=== PATIENT | female | born 1955 | race Caucasian/White ===

== ENCOUNTER 2016-10-20 21:13 | Emergency (ER) | payer OTHER ==
[~2016-10-20 21:13] MED LIST: DOXY100T PO; KLON2TAB PO; LYRI50CA2 PO; MAXA10TA2 PO; PERC10TA27 PO; SERT100 PO; TRAZ100 PO
[2016-10-20 21:16] VITALS: BP 102/64; PULSE 63; RESP 16; TEMP 97.8; O2SAT 96
[2016-10-20 23:32] LABS: AUTOMATED NEUTROPHIL # 3.7 TH/MM3 (1.8-7.7); BASOPHIL # 0.1 TH/MM3 (0-0.2); BASOPHIL % 0.8 % (0.0-2.0); EOSINOPHIL # 0.1 TH/MM3 (0-0.4); EOSINOPHIL % 1.7 % (0.0-4.0); HEMATOCRIT 40.4 % (35.0-46.0); HEMO FLAGS DIFF FINAL; LYMPH % 34.7 % (9.0-44.0); LYMPHOCYTE # 2.3 TH/MM3 (1.0-4.8); MEAN CELL VOLUME 82.2 FL (80.0-100.0); MEAN CORPUSCULAR HEMOGLOBIN 28.1 PG (27.0-34.0); MEAN CORPUSCULAR HGB CONC 34.2 % (32.0-36.0); MONO % 6.7 % (0.0-8.0); NEUT % 56.1 % (16.0-70.0); PLATELET COUNT 229 TH/MM3 (150-450); RED BLOOD COUNT 4.91 MIL/MM3 (4.00-5.30); RED CELL DISTRIBUTION WIDTH 13.6 % (11.6-17.2); WHITE BLOOD COUNT 6.6 TH/MM3 (4.0-11.0)
[2016-10-21 00:39] LABS: POTASSIUM 4.4 MEQ/L (3.5-5.1)
[2016-10-21] MEDS ORDERED: ONDANSETRON HCL 4 MG/2 ML VIAL IV PUSH ONE (01:15)
[2016-10-21] MEDS ORDERED: MORPHINE SULFATE 4 MG/ML INJ IV PUSH ONE (01:15)
[2016-10-21] MEDS ORDERED: oxyCODONE/ACETAMINOPHEN 5 MG/325 MG TAB PO ONE (01:30)
[2016-10-21] MEDS ORDERED: IOHEXOL 350 MG/ML 10 ML VIAL (for RAD DIAG) IV ONE (02:02)
[2016-10-21 02:06] VITALS: BP 108/66; PULSE 66; RESP 14; O2SAT 97
--- NOTE | 2016-10-21 02:18 | RADRPT ---
EXAM DATE/TIME: 10/21/2016 01:46 [place] COMPARISON: No previous studies available for comparison. INDICATIONS : Left axillary pain, evaluate for possible infection IV CONTRAST: 69 cc Omnipaque 350 (iohexol) IV RADIATION DOSE: 3.44 CTDIvol (mGy) MEDICAL HISTORY : Cardiovascular disease. Carcinoma, breast. Cervical cancer SURGICAL HISTORY : Cholecystectomy. Mastectomy, bilateral.Partial hysterectomy ENCOUNTER: Initial ACUITY: 2 weeks PAIN SCALE: 5/10 LOCATION: Left chest TECHNIQUE: Volumetric scanning of the chest was performed. Using automated exposure control and adjustment of t he mA and/or kV according to patient size, radiation dose was kept as low as reasonably achievable to obtain optimal diagnostic quality images. FINDINGS: There is minimal dependent atelectasis in the lungs. No lung consolidation. No pleural or pericardial effusion. There is no axillary adenopathy. No abnormal fluid collections in the chest. No hilar or m ediastinal adenopathy. Mild coronary calcifications. No acute findings in the upper abdomen. CONCLUSION: 1. No acute findings on this CT. Specifically no left-sided axillary adenopathy or abnormal inflammat ory changes identified. Ambrose Gallardo MD on October 21, 2016 at 2:10 Board Certified Radiologist. This report was verified electronically.
[2016-10-21 04:35] VITALS: BP 112/68; PULSE 62; RESP 14; O2SAT 98
[2016-10-21] MEDS ORDERED: PERC5TAB12 PO (04:59)
--- NOTE | 2016-10-21 04:59 | PD ---
HPI Chief Complaint: left axilla pain Time Seen by Provider: 00:52 Travel History International Travel<30 days: No Contact w/Intl Traveler<30days: No Traveled to known affect area: No History of Present Illness HPI 61yo F with PMH of invasive ductal carcinoma left breast presents to the ED with c/o left axilla pain for a while but worst last 2 days. States pain radiates from axilla to lateral aspect of scapula. Denies any fever, cough, chest pain, sob, n/v, abdominal pain, focal weakness or numbness. PFSH Past Medical History Asthma: No Autoimmune Disease: No Blood Disorders: No Anxiety: Yes Depression: Yes Heart Rhythm Problems: Yes Cancer: Yes (BREAST / CERVICAL) Cardiovascular Problems: Yes (PALPITATIONS) High Cholesterol: No Chemotherapy: No Chest Pain: Yes Congestive Heart Failure: No COPD: No Diabetes: No Diminished Hearing: No Endocrine: No Gastrointestinal Disorders: Yes Genitourinary: No Headaches: Yes Immune Disorder: No Musculoskeletal: Yes (CHRONIC BACK AND NECK PAIN) Neurologic: Yes Psychiatric: Yes (POST TRAUMATIC STRESS DISORDER) Reproductive: Yes Respiratory: No Migraines: Yes Radiation Therapy: No Sleep Apnea: No Thyroid Disease: No Influenza Vaccination: No ?: Not Ovarian Cysts: Yes Past Surgical History AICD: No Cholecystectomy: Yes Gynecologic Surgery: Yes (PARTIAL HYSTERECTOMY) Hysterectomy: Yes (PARTIAL) Joint Replacement: No Mastectomy: Yes (bilateral mastectomy, ) Pacemaker: No Other Surgery: Yes Social History Alcohol Use: No Tobacco Use: No Substance Use: No Allergies-Medications (Allergen,Severity, Reaction): Coded Allergies: Codeine (Verified Allergy, Severe, NAUSEA, 10/21/16) Fentanyl (Verified Allergy, Severe, Hives, 10/21/16) Morphine (Verified Allergy, Severe, VOMITING, 10/21/16) Nucynta (Verified Allergy, Severe, Headache, 10/21/16) Opana (Verified Allergy, Severe, Nausea/Vomiting, 10/21/16) Reported Meds & Prescriptions Reported Meds & Active Scripts Active Doxycycline Hyclate 100 mg (Doxycycline Hyclate) 100 Mg Tab 100 Mg PO BID 7 Days Percocet 10/325 (Oxycodone/Acetaminophen) Oxycodone 10/325 Acetaminophen Tab 1- 2 Tab PO Q4H PRN PRN PAIN Reported Maxalt (Rizatriptan Benzoate) 10 Mg Tab 10 Mg PO DAILY PRN FOR HEADACHE (MAXIMUM DOSAGE EQUALS 30 MG/24 HOURS) Zoloft (Sertraline HCl) 100 Mg Tab 100 Mg PO BID Trazodone Hcl (Trazodone HCl) 100 Mg Tab 200 Mg PO HS Lyrica (Pregabalin) 50 Mg Cap 50 Mg PO TID Klonopin (Clonazepam) 2 Mg Tab 1 Mg PO TID Review of Systems Except as stated in HPI: all other systems reviewed are Neg Physical Exam Narrative GENERAL: 61yo F not in distress. SKIN: Focused skin assessment warm/dry. HEAD: Atraumatic. Normocephalic. EYES: Pupils equal and round. No scleral icterus. No injection or drainage. ENT: No nasal bleeding or discharge. Mucous membranes pink and moist. NECK: Trachea midline. No JVD. CARDIOVASCULAR: Regular rate and rhythm. No murmur appreciated. RESPIRATORY: No accessory muscle use. Clear to auscultation. Breath sounds equal bilaterally. GASTROINTESTINAL: Abdomen soft, non-tender, nondistended. No rebound tenderness or guarding. MUSCULOSKELETAL: Left axilla: No signs of erythema or palpable lymph node. + TTP left lateral scapula. No erythema. NEUROLOGICAL: Awake and alert. No obvious cranial nerve deficits. Motor grossly within normal limits. Normal speech. PSYCHIATRIC: Appropriate mood and affect; insight and judgment normal. Data Data Last Documented VS Vital Signs Date Time Temp Pulse Resp B/P Pulse Ox O2 Delivery O2 Flow Rate FiO2 10/21/16 04:35 62 14 112/68 98 Room Air 10/20/16 21:16 97.8 Orders Basic Metabolic Panel (Bmp) (10/20/16 23:00) Complete Blood Count With Diff (10/20/16 23:00) Morphine Inj (Morphine Inj) (10/21/16 01:15) Ondansetron Inj (Zofran Inj) (10/21/16 01:15) Oxycodone-Acetamin 5-325 Mg (Percocet (10/21/16 01:30) Ct Thorax/ Chest W Iv Contrast (10/21/16 ) Iohexol 350 Inj (Omnipaque 350 Inj) (10/21/16 02:02) Labs Laboratory Tests Test 10/20/16 23:10 White Blood Count 6.6 TH/MM3 Red Blood Count 4.91 MIL/MM3 Hemoglobin 13.8 GM/DL Hematocrit 40.4 % Mean Corpuscular Volume 82.2 FL Mean Corpuscular Hemoglobin 28.1 PG Mean Corpuscular Hemoglobin 34.2 % Concent Red Cell Distribution Width 13.6 % Platelet Count 229 TH/MM3 Mean Platelet Volume 8.7 FL Neutrophils (%) (Auto) 56.1 % Lymphocytes (%) (Auto) 34.7 % Monocytes (%) (Auto) 6.7 % Eosinophils (%) (Auto) 1.7 % Basophils (%) (Auto) 0.8 % Neutrophils # (Auto) 3.7 TH/MM3 Lymphocytes # (Auto) 2.3 TH/MM3 Monocytes # (Auto) 0.4 TH/MM3 Eosinophils # (Auto) 0.1 TH/MM3 Basophils # (Auto) 0.1 TH/MM3 CBC Comment DIFF FINAL Differential Comment Sodium Level 140 MEQ/L Potassium Level 4.4 MEQ/L Chloride Level 105 MEQ/L Carbon Dioxide Level 31.0 MEQ/L Anion Gap 4 MEQ/L Blood Urea Nitrogen 13 MG/DL Creatinine 0.65 MG/DL Estimat Glomerular Filtration 93 ML/MIN Rate Random Glucose 95 MG/DL Calcium Level 9.4 MG/DL MDM Medical Decision Making Medical Screen Exam Complete: Yes Emergency Medical Condition: Yes Interpretation(s) Laboratory Tests Test 10/20/16 23:10 White Blood Count 6.6 TH/MM3 (4.0-11.0) Red Blood Count 4.91 MIL/MM3 (4.00-5.30) Hemoglobin 13.8 GM/DL (11.6-15.3) Hematocrit 40.4 % (35.0-46.0) Mean Corpuscular Volume 82.2 FL (80.0-100.0) Mean Corpuscular Hemoglobin 28.1 PG (27.0-34.0) Mean Corpuscular Hemoglobin 34.2 % Concent (32.0-36.0) Red Cell Distribution Width 13.6 % (11.6-17.2) Platelet Count 229 TH/MM3 (150-450) Mean Platelet Volume 8.7 FL (7.0-11.0) Neutrophils (%) (Auto) 56.1 % (16.0-70.0) Lymphocytes (%) (Auto) 34.7 % (9.0-44.0) Monocytes (%) (Auto) 6.7 % (0.0-8.0) Eosinophils (%) (Auto) 1.7 % (0.0-4.0) Basophils (%) (Auto) 0.8 % (0.0-2.0) Neutrophils # (Auto) 3.7 TH/MM3 (1.8-7.7) Lymphocytes # (Auto) 2.3 TH/MM3 (1.0-4.8) Monocytes # (Auto) 0.4 TH/MM3 (0-0.9) Eosinophils # (Auto) 0.1 TH/MM3 (0-0.4) Basophils # (Auto) 0.1 TH/MM3 (0-0.2) CBC Comment DIFF FINAL Differential Comment Sodium Level 140 MEQ/L (136-145) Potassium Level 4.4 MEQ/L (3.5-5.1) Chloride Level 105 MEQ/L (98-107) Carbon Dioxide Level 31.0 MEQ/L (21.0-32.0) Anion Gap 4 MEQ/L (5-15) Blood Urea Nitrogen 13 MG/DL (7-18) Creatinine 0.65 MG/DL (0.50-1.00) Estimat Glomerular Filtration 93 ML/MIN (>89) Rate Random Glucose 95 MG/DL (74-106) Calcium Level 9.4 MG/DL (8.5-10.1) Last Impressions Chest CT 10/21/16 0000 Signed Impressions: Service Date/Time: September 01:46 - CONCLUSION: 1. No acute findings on this CT. Specifically no left-sided axillary adenopathy or abnormal inflammatory changes identified. Ambrose Gallardo MD Differential Diagnosis Metastatic disease vs. chronic pain from node biopsy vs. musculoskeletal pain Narrative Course 61yo F with left axilla pain that radiates to left scapula. Pt follows with Dr. Kulkarni. Discussed with Dr. Agrawal who is oncologist talent acquisition administrator and she agrees with my plan for CT and states that if negative, pt can follow up with Dr. Kulkarni as outpatient. Labs reviewed, no leukocytosis. BMP wnl. CT chest showed no acute findings. Specifically no left sided axillary adenopathy or inflammatory changes identified. Pt given percocet and pain has improved. Diagnosis Primary Impression: Left axillary pain Patient Instructions: General Instructions Departure Forms: Tests/Procedures Additional Instructions: Please follow up with Dr. Kulkarni in 1-2 days. Return to the ED if symptoms worsen. Med/Other Pt SpecificInfo: Prescription(s) given Scripts Oxycodone-Acetaminophen (Percocet)5-325 mg Tab1 Tab PO Q6H PRN (PAIN) #10 TAB Ref 0 Prov:Kamla Cervantes DO 10/21/16 Kamla Cevrantes DO Oct 21, 2016 04:59
== END 2016-10-21 05:42 | disposition home or self-care (01) ==
LOC: NEPE 21:13
DX: M79.622 Pain in left upper arm (principal); C50.912 Malignant neoplasm of unspecified site of left female breast
CPT/HCPCS: 71260; 80048; 85025; 96374; 99284; J2405; Q9967